=== PATIENT | female | born 1945 | race Caucasian/White ===

== ENCOUNTER → 2021-04-10 | Outpatient (CLI) | payer BC | LOC: MAMMO 13:30 | DX: Z12.31 Encounter for screening mammogram for malignant neoplasm of breast (principal); Z13.820 Encounter for screening for osteoporosis; M85.80 Other specified disorders of bone density and structure, unspecified site ==

== ENCOUNTER → 2021-05-18 | Day surgery (SDC) | payer BC | LOC: MSO 08:34 | DX: Z12.11 Encounter for screening for malignant neoplasm of colon (principal); D12.8 Benign neoplasm of rectum; I10 Essential (primary) hypertension; E78.5 Hyperlipidemia, unspecified; Z86.010 Personal history of colon polyps; M81.0 Age-related osteoporosis without current pathological fracture; K57.30 Diverticulosis of large intestine without perforation or abscess without bleeding; E11.9 Type 2 diabetes mellitus without complications; M19.90 Unspecified osteoarthritis, unspecified site | CPT/HCPCS: 00811; J2704; J7120 ==

== ENCOUNTER 2021-05-22 07:42 | Outpatient (RCR) | payer BC | END 2021-06-16 | disposition home or self-care (01) | LOC: PT 07:42 | DX: M54.50 Low back pain, unspecified (principal) ==

== ENCOUNTER 2021-06-23 08:30 | Outpatient (RCR) | payer BC | END 2021-07-17 | disposition home or self-care (01) | LOC: PT | DX: M54.50 Low back pain, unspecified (principal) ==

== ENCOUNTER 2021-07-18 07:52 | Outpatient (RCR) | payer BC | END 2021-08-14 | disposition home or self-care (01) | LOC: PT | DX: M54.50 Low back pain, unspecified (principal) ==